=== PATIENT | male | born 1970 | race Caucasian/White ===

== ENCOUNTER 2017-12-11 14:33 | Emergency (ER) | payer OTHER, SELFPAY ==
[2017-12-11] MEDS ORDERED: Colchicine 0.6 MG TAB ONE (15:22)
[2017-12-11] MEDS ORDERED: Ibuprofen 800 MG TAB ONE (15:23)
== END 2017-12-11 19:39 | disposition home or self-care (01) ==
LOC: MADERS 14:33
DX: M10.9 Gout, unspecified (principal); F17.220 Nicotine dependence, chewing tobacco, uncomplicated
CPT/HCPCS: 99283